=== PATIENT | female | born 1960 | race Caucasian/White ===

== ENCOUNTER 2017-05-30 10:57 | Inpatient (IN) ==
[2017-05-30] MEDS ORDERED: SODIUM CHLORIDE 0.9% 1,000 ML IV STA ×2 (11:11→12:16)
--- NOTE | 2017-05-30 11:20 | Emergency Department Note ---
Yoshi Ray Mantricia, am scribing for, and in the presence of, Parrish Boyle MD 11:16. Tamar Ray James D, MD, personally performed the services described in this documentation, ascribed by Dianna Belle in my presence, and it is both accurate and complete . Arrival - Arrival Chief Complaint: Nausea/Vomiting/Diarrhea Stated Complaint: diabetic-no insulin x2days ED Nursing Triage Note: C/o N/V and elevated glucose-onset this morning. Patient is type 1 diabetic and has been out of her insulin for 2 days. Accucheck >500mg/dl in triage. Mode of Arrival: Wheelchair Limitations: No Limitations Source: Patient Time Seen by Provider: 05/30/17 11:08 - History of Present Illness HPI Narrative: Pt is a 56 y/o white female arriving to ED via wheelchair with c/o N/V and elevated glucose that onset this morning. Pt reports that she is a type 1 IDDM and has been out of her insulin for 2 days. She also c/o frequent urination. She states that her glucose level was 490 mg/dl at 0500 this morning, 270 mg/dl 4 hours later,115 mg/dl [employer], and 500 mg/dl during triage. Pt has a PMHx of IDDM for 48 years now and has experienced DKA twice. No other complaints were reported to ED. Onset (ago): hour(s) Consistency: constant Severity: moderate Date of Last Menstrual Period: menopause Allergies/Adverse Reactions: Allergies Allergy/AdvReac Type Severity Reaction Status Date / Time acetaminophen [From Vicodin] Allergy Unknown/Unable Verified 05/30/17 11:06 to obtain codeine Allergy Unknown/Unable Verified 05/30/17 11:06 to obtain hydrocodone [From Vicodin] Allergy Unknown/Unable Verified 05/30/17 11:06 to obtain Home Medications: Home Medications Medication Instructions Recorded Confirmed Type Estradiol [Estradiol Tab] 0.5 mg PO QAM 05/30/17 05/30/17 History Insulin Aspart [NovoLOG] 3 unit SUBCUT TID W/MEALS 05/30/17 05/30/17 History Insulin Detemir [Levemir] 8 unit SUBCUT BEDTIME 05/30/17 05/30/17 History Lisinopril [Zestril] 2.5 mg PO QAM 05/30/17 05/30/17 History Review of System - Review of System 12 point system: reviewed and no additional remarkable complaints except as stated - Review of System Constitutional: Present: other (elevated glucose). Absent: chills, diaphoresis , fever Gastrointestinal: Present: nausea, vomiting. Absent: abdominal pain, diarrhea Genitourinary female: Present: frequency. Absent: dysuria, discharge Medical,Surgical,& Family Hx - Medical History Endocrine: History of: Diabetes Mellitus (IDDM) - Social History Smoking Status: Never smoker Frequency of Alcohol Use: None Type of Drug Use: None Exam Vital Signs: Vital Signs Temperature 97.0 F L 05/30/17 11:02 Pulse Rate 105 H 05/30/17 11:02 Respiratory Rate 18 05/30/17 11:02 Blood Pressure 93/67 05/30/17 11:02 O2 Sat by Pulse Oximetry 99 05/30/17 11:02 GENERAL: This is a thin chronically ill-appearing white female in no apparent distress. VITAL SIGNS: Reviewed HEENT: Head is atraumatic and normocephalic. Pupils are equal round react to light. Extraocular movements are intact. Oropharynx is benign with dry mucous membranes. Poor dentition NECK: Neck is soft and supple without tenderness. There are no masses. There is no lymphadenopathy. LUNGS: Lungs are clear to auscultation. Chest rises symmetrically. There is no chest wall tenderness. CV: Heart is regular rate and rhythm without murmurs rubs or gallops. ABDOMEN: Abdomen is soft, nontender to palpation. There are no abdominal abnormal masses palpated. There is no organomegaly. Bowel sounds are present and active. SKIN: Skin is warm and dry. No rash. EXTREMITIES: Patient has full range of motion without tenderness. There is no pedal edema. NEUROLOGIC: Awake alert and oriented 4. Cranial nerves II through XII are grossly intact. Motor is 5 over 5 in all extremities bilaterally. Deep tendon reflexes are 2+ and bilaterally equal. Course Course Narrative: Patient was given multiple fluid boluses along with 10 units of IV insulin and 1 amp of sodium bicarb. - Consultations Consultation #1: Discussed with hospitalist. Patient will be admitted to their service. Time: 12:47 Results - Labs CBC & BMP: 05/30/17 11:09 09/16/17 11:09 Lab Results: I have reviewed the patients labs Labs: Laboratory Tests 05/30/17 05/30/17 11:09 11:09 Plt Count 420 H Neut % (Auto) 79.4 H Lymph % (Auto) 13.5 L Baso % (Auto) 1.1 H Neut # (Auto) 9.2 H Sodium 129 L Potassium 5.2 H Chloride 93 L Carbon Dioxide 12 L Anion Gap 29.2 H BUN 40 H Creatinine 1.50 H BUN/Creatinine Ratio 26.00 H Glucose 666 H* Alkaline Phosphatase 239 H Lipase 466.0 H b-Hydroxybutyric mmol/L 5.5 H Laboratory Tests 05/30/17 05/30/17 11:58 12:15 ABG pH 7.077 L* ABG pCO2 18.7 L* ABG pO2 129.0 H ABG HCO3 8.0 L ABG Total CO2 5.2 L ABG O2 Saturation 97.3 ABG Base Excess -24.0 L Urine Opiates Screen Negative Ur Barbiturates Screen Negative Ur Phencyclidine Scrn Negative U Amphetamine/Methamph Negative U Benzodiazepines Scrn Negative U Cocaine Metab Screen Negative U Cannabinoids Screen Negative - Diagnostic Findings Procedure: Abdominal x-ray: image reviewed by me, report reviewed by me (Right nephrolithiasis cannot be excluded.), Chest x-ray: image reviewed by me, report reviewed by me (No abnormality is seen.) Critical Care Time Critical Care Time: Yes Total Critical Care Time: 60 Disposition Clinical Impression: Diabetes mellitus type 1, Dehydration, Diabetic ketoacidosis Case discussed with: patient, patient's family Disposition: Still a Patient Condition: Guarded
[2017-05-30 11:25] LABS: Basophils # 0.1 10*3/uL (0.0-0.2); Basophils % 1.1 % (0.0-0.8); Eosinophils % 0.3 % (0.00-10.9); Hematocrit 40.9 VOL% (35.7-47.0); Hemoglobin 13.7 GM/DL (12.0-16.0); Immature Granulocytes % 3.5 %; Immature Granulocytes Absolute 0.41 #; Lymphocytes # 1.6 10*3/uL (1.4-4.0); Lymphocytes % 13.5 % (21.3-54.2); Mean Corpuscular HGB Conc 33.5 GM/DL (32-36); Mean Corpuscular Hemoglobin 30 PG (27-34); Mean Corpuscular Volume 89.1 FL (87-102); Mean Platelet Volume 11.2 FL (9.6-12.0); Monocytes # 0.3 10*3/uL (0.11-0.8); Monocytes % 2.2 % (1.7-12.7); Neutrophils # 9.2 10*3/uL (1.4-7.4); Neutrophils % 79.4 % (38.7-73.9); Platelet Count 420 T/CUMM (130-400); Red Blood Count 4.59 MC/CUMM (3.8-5.5); Red Cell Distribution Width 12.1 % (9.3-17.3); White Blood Count 11.6 T/CUMM (4-12)
[2017-05-30 11:46] LABS: Albumin 4.4 G/DL (3.4-5.0); Bilirubin,Total 0.6 MG/DL (0.2-1.0); Calcium 9.9 MG/DL (8.5-10.1); Osmolality,Calculated 299.9 MOS/KG (273-304); Potassium 5.2 MMOL/L (3.5-5.1); Total Protein 7.6 G/DL (6.4-8.3)
--- NOTE | 2017-05-30 11:49 | XRay Report ---
Single view the chest. Indication: Nausea and vomiting. Diabetes mellitus. The heart and mediastinal contours are unremarkable. The pulmonary vasculature is normal. There is no consolidation, pneumothorax, or pleural effusion. The osseous structures are unremarkable. Impression: No abnormality is seen. PROCEDURE INTERPRETED AT [facility] DEPARTMENT OF RADIOLOGY Final Report Signed by: Dr. Enriqueta Fajardo
--- NOTE | 2017-05-30 11:50 | XRay Report ---
Abdomen ultrasound complete. Indication: Nausea and vomiting. The heart is normal in size. The lung bases are clear. There is no free air. Calcification projects over the midpole of the right kidney, measuring 1 x 2 mm. Calcifications in the pelvis are likely vascular. Bowel gas pattern is normal. No evidence of obstruction. Normal osseous structures. Impression: Right nephrolithiasis cannot be excluded. PROCEDURE INTERPRETED AT [facility] DEPARTMENT OF RADIOLOGY Final Report Signed by: Dr. Enriqueta Fajardo
[2017-05-30 12:06] LABS: ABG Oxygen Saturation 97.3 % (95-100); ABG TCO2 5.2 MMOL/L (23-27)
[2017-05-30 12:09] LABS: ABG PCO2 18.7 MM HG (35-48); ABG PH 7.077 (7.35-7.45)
[2017-05-30] MEDS ORDERED: SODIUM BICARBONATE 50 MEQ/50 ML VIAL IV STA (12:15)
[2017-05-30] MEDS ORDERED: INSULIN REGULAR 100 UNIT/ML IV STA (12:17)
[2017-05-30] MEDS ORDERED: SODIUM BICARBONATE 50 MEQ/50 ML SYRINGE IV ONE (12:21)
[2017-05-30 12:22] LABS: Apearance,Urine CLEAR (Clear); Bacteria,Urine Occasional /HPF (Few); Bilirubin,Urine Negative (Negative); Blood, Urine Negative (Negative); Glucose,Urine (UA) >=500 mg/dL (Negative); Ketones,Urine 80 mg/dL (Negative); Mucus,Urine Occasional /LPF (Occasional); Nitrite,Urine Negative (Negative); Protein,Urine Negative; Squamous Epithelial Cell,Urine Occasional /HPF (0-10); Urine Color Straw (Yellow); Urine Specific Gravity 1.017 (1.001-1.035); Urine Urobilinogen < 2.0 EU/DL (0.2-1.0); WBC,Urine <1 /HPF (0-6)
[2017-05-30] MEDS ORDERED: INSULIN REGULAR 100 UNIT/ML ONE (12:22)
[2017-05-30 12:30] LABS: Barbiturates Screen,Urine Negative (Negative); Benzodiazepines Screen,Urine Negative (Negative); Cannabinoid Screen,Urine Negative (Negative); Opiate Screen,Urine Negative (Negative); Phencyclidine Screen,Urine Negative (Negative)
--- NOTE | 2017-05-30 13:28 | Hospitalist History & Physical ---
Assessment and Plan (1) Diabetic ketoacidosis Status: Acute Assessment and plan: Normal saline bolus and insulin drip, acidosis on ABG. Current Visit: Yes (2) Hyponatremia Status: Acute Assessment and plan: Normal saline boluses Current Visit: Yes (3) Hypothyroidism Status: Acute Assessment and plan: Restart Synthroid. Check TSH Current Visit: Yes (4) Acute renal failure Status: Acute Assessment and plan: Rehydrate aggressively and recheck BMP in a.m. Current Visit: Yes (5) Pancreatitis Status: Acute Assessment and plan: Mildly elevated lipase which may have set off her DKA. Recheck lipase in a.m. clear liquids for now. Current Visit: Yes (6) Dehydration Status: Acute Assessment and plan: Normal saline boluses, dehydration due to hyperglycemia Current Visit: Yes History of Present Illness Chief complaint: nausea and vomiting History of present illness: Ms. Manuel is a 56 year old female who lives in [place] but came her for a visit and forgot to bring her insulin. She reports c/o N/V and her glucose is elevated at 666. She has been a type I diabetic since age of [age]. She was given one liter of NS in ER and 10 units of IV insulin and will be moved to CCU. Home Medications Medication Instructions Recorded Confirmed Type Estradiol [Estradiol Tab] 0.5 mg PO QAM 05/30/17 05/30/17 History Insulin Aspart [NovoLOG] 3 unit SUBCUT TID W/MEALS 05/30/17 05/30/17 History Insulin Detemir [Levemir] 8 unit SUBCUT BEDTIME 05/30/17 05/30/17 History Lisinopril [Zestril] 2.5 mg PO QAM 05/30/17 05/30/17 History Allergies Allergy/AdvReac Type Severity Reaction Status Date / Time acetaminophen [From Vicodin] Allergy Unknown/Unable Verified 05/30/17 11:06 to obtain codeine Allergy Unknown/Unable Verified 05/30/17 11:06 to obtain hydrocodone [From Vicodin] Allergy Unknown/Unable Verified 05/30/17 11:06 to obtain Medical,Surgical,& Family Hx - Medical History Cardio: No history of: Hypertension Endocrine: History of: Diabetes Mellitus (IDDM), Thyroid Disorder - Surgical History Reproductive Surgeries: Surgical HX of;: Section Additional Surgical History: Breast biopsy and eye surgery - Family History Family History: Reports;: Family Cancer, Family Diabetes Denies;: Family Heart Disease, Family Stroke - Social History Smoking Status: Never smoker (But was exposed to secondhand smoke) Frequency of Alcohol Use: None Type of Drug Use: None Marital Status: Lives With:: Spouse Functional capacity: independent ambulation - Constitutional Constitutional: Present: fatigue. Absent: fever(s), headache(s) - EENT Eyes: Present: blurry vision. Absent: diplopia Ears: Absent: decreased hearing, ear discharge Nose, mouth and throat: Absent: headache(s), sore throat - Cardiovascular Cardiovascular: Absent: chest pain at rest, chest pain with activity, dyspnea, dyspnea on exertion - Respiratory Respiratory: Absent: cough, dyspnea, dyspnea on exertion, change in phlegm color - Gastrointestinal Gastrointestinal: Present: nausea, vomiting. Absent: constipation, diarrhea - Genitourinary Genitourinary: Absent: difficulty urinating, dysuria - Neurological Neurological: Absent: headache(s), syncope - Psychiatric Psychiatric: Absent: anxiety, depression - Endocrine Endocrine: Present: cold intolerance, fatigue. Absent: heat intolerance - Hematologic/Lymphatic Hematologic/Lymphatic: Absent: easy bleeding, easy bruising Exam - Constitutional Vitals: Period Temp Pulse Resp BP Sys/Ferrer Pulse Ox Last 24 Hr 97.0 F-97.0 F 105-105 18-18 93-93/67-67 99 General appearance: no acute distress, under weight - Head Head exam: Present: normal inspection, normocephalic - Eye Eye exam: Present: EOMI, conjunctival injection Pupils: Present: JENNA, normal accommodation - ENT ENT exam: Present: normal exam, normal external ear exam - Neck Neck exam: Absent: lymphadenopathy, thyromegaly - Respiratory Respiratory exam: Present: clear to auscultation bilaterally. Absent: rhonchi, wheezes - Cardiovascular Cardiovascular exam: Present: tachycardia. Absent: systolic murmur - GI/Abdominal GI/Abdominal exam: Present: normal bowel sounds, soft. Absent: tenderness - Extremities Exam Extremities exam: Present: normal inspection, normal capillary refill - Neurological Exam Neurological exam: Present: alert, oriented X3, CN II-XII intact, reflexes normal. Absent: motor sensory deficit - Psychiatric Psychiatric exam: Present: normal affect, normal mood Results - Labs CBC & BMP: 05/30/17 11:09 05/30/17 11:09 Lab Results: I have reviewed the past 24 hour labs - Diagnostic Findings Procedure: Abdominal x-ray: report reviewed by me (Right nephrolithiasis), Chest x-ray: report reviewed by me (Nothing acute)
[2017-05-30] MEDS ORDERED: ONDANSETRON 4 MG/2 ML VIAL IV PRN (13:59)
[2017-05-30] MEDS ORDERED: SODIUM CHLORIDE 0.9% IV PRN (13:59)
[2017-05-30] MEDS ORDERED: SODIUM PHOSPHATE IV PRN (13:59)
[2017-05-30] MEDS ORDERED: ALBUTEROL 2.5 MG/3 ML NEB RESP TX PRN (13:59)
[2017-05-30] MEDS ORDERED: MAGNESIUM SULF RIDER 2 GM in PREMIX 1 EACH IV PRN (13:59)
[2017-05-30] MEDS ORDERED: INSULIN REGULAR 100 UNIT/ML IV ONE (13:59)
[2017-05-30] MEDS ORDERED: INSULIN REGULAR DRIP 100 ML IV SCH (13:59)
[2017-05-30] MEDS ORDERED: DEXTROSE 50% 25 GM/50 ML SYRINGE IV PRN ×2 (13:59)
[2017-05-30] MEDS ORDERED: SODIUM CHLORIDE 0.9% 1,000 ML IV ONE (13:59)
[2017-05-30] MEDS ORDERED: MAGNESIUM SULF RIDER 4 GM in PREMIX 1 EACH IV PRN (13:59)
[2017-05-30] MEDS ORDERED: POTASSIUM CHLORIDE RIDER 10 MEQ in PREMIX 1 EACH IV PRN (13:59)
[2017-05-30] MEDS ORDERED: SODIUM BICARB INJ 100 MEQ in STERILE WATER INJ 400 ML IV PRN (13:59)
[2017-05-30] MEDS: SODIUM CHLORIDE 0.9% 1,000 ML IV SCH ×4 (14:24→20:57)
[2017-05-30 14:50] LABS: ABG Base Excess -17.2 MMOL/L (-2.5-2.5); ABG HCO3 11.7 MMOL/L (20-26); ABG Oxygen Saturation 98.5 % (95-100); ABG PCO2 22.6 MM HG (35-48); ABG PH 7.223 (7.35-7.45); ABG TCO2 8.6 MMOL/L (23-27); Allen Test Positive; Pt O2 Delivery Device Room Air
[2017-05-30 14:53] LABS: Osmolality,Calculated 298.7 MOS/KG (273-304); Potassium 4.2 MMOL/L (3.5-5.1)
[2017-05-30 15:05] LABS: Free T4 (Free Thyroxine) 0.73 NG/DL (0.76-1.46); Thyroid Stimulating Hormone 1.27 uIU/ml (0.358-3.74)
[2017-05-30] MEDS: PANTOPRAZOLE 40 MG VIAL IV SCH (15:06)
[2017-05-30 15:10] LABS: Lactic Acid 2.6 MMOL/L (0.4-2.0)
[2017-05-30 16:18] LABS: ABG Base Excess -14.2 MMOL/L (-2.5-2.5); ABG HCO3 13.5 MMOL/L (20-26); ABG PCO2 27.9 MM HG (35-48); ABG PH 7.244 (7.35-7.45); ABG TCO2 11.2 MMOL/L (23-27); Allen Test Positive; Pt O2 Delivery Device Room Air
[2017-05-30 17:40] LABS: ABG Base Excess -11.7 MMOL/L (-2.5-2.5); ABG HCO3 13.2 MMOL/L (20-26); ABG Oxygen Saturation 97.3 % (95-100); ABG PCO2 27.3 MM HG (35-48); ABG PH 7.303 (7.35-7.45); ABG PO2 101.8 MM HG (80-95); ABG TCO2 14.1 MMOL/L (23-27); Allen Test Positive; Pt O2 Delivery Device Room Air
[2017-05-30 18:44] LABS: Phosphorous 1.9 MG/DL (2.5-4.9)
[2017-05-30 18:45] LABS: Calcium 7.2 MG/DL (8.5-10.1); Osmolality,Calculated 298.5 MOS/KG (273-304); Potassium 3.8 MMOL/L (3.5-5.1)
[2017-05-30] MEDS: SODIUM CHLOR 0.45% KCL 20 MEQ 20 MEQ/1,000 ML BAG IV SCH (20:50)
[2017-05-30] MEDS: DEXT 5% NACL 0.45% KCL 20 MEQ 20 MEQ/1,000 ML BAG IV SCH (22:25)
[2017-05-30 23:10] LABS: Calcium 7.5 MG/DL (8.5-10.1); Osmolality,Calculated 286.3 MOS/KG (273-304); Potassium 3.5 MMOL/L (3.5-5.1)
[2017-05-31] MEDS: DEXT 5% NACL 0.45% KCL 20 MEQ 20 MEQ/1,000 ML BAG IV SCH ×2 (02:15→06:27)
[2017-05-31] MEDS: SODIUM CHLOR 0.45% KCL 20 MEQ 20 MEQ/1,000 ML BAG IV SCH (02:16)
[2017-05-31 02:45] LABS: Basophils % 0.3 % (0.0-0.8); Eosinophils # 0.1 10*3/uL (0.0-0.87); Eosinophils % 0.6 % (0.00-10.9); Hematocrit 28.4 VOL% (35.7-47.0); Immature Granulocytes % 0.9 %; Immature Granulocytes Absolute 0.09 #; Lymphocytes # 2.1 10*3/uL (1.4-4.0); Lymphocytes % 22.1 % (21.3-54.2); Mean Corpuscular HGB Conc 35.2 GM/DL (32-36); Mean Corpuscular Hemoglobin 30 PG (27-34); Mean Corpuscular Volume 83.8 FL (87-102); Mean Platelet Volume 10.5 FL (9.6-12.0); Monocytes # 0.5 10*3/uL (0.11-0.8); Monocytes % 5.2 % (1.7-12.7); Neutrophils # 6.7 10*3/uL (1.4-7.4); Neutrophils % 70.9 % (38.7-73.9); Platelet Count 279 T/CUMM (130-400); Red Blood Count 3.39 MC/CUMM (3.8-5.5); Red Cell Distribution Width 12.2 % (9.3-17.3); White Blood Count 9.5 T/CUMM (4-12)
[2017-05-31 02:49] LABS: Calcium 7.5 MG/DL (8.5-10.1); Calcium 7.6 MG/DL (8.5-10.1); Magnesium 1.9 MG/DL (1.8-2.4); Osmolality,Calculated 287.4 MOS/KG (273-304); Osmolality,Calculated 288.4 MOS/KG (273-304); Phosphorous 1.4 MG/DL (2.5-4.9); Potassium 3.6 MMOL/L (3.5-5.1)
[2017-05-31] MEDS ORDERED: SODIUM CHLOR 0.45% KCL 20 MEQ 20 MEQ/1,000 ML BAG IV SCH (04:30)
[2017-05-31] MEDS: SODIUM CHLORIDE 0.45% 1,000 ML IV SCH ×3 (06:27→15:22)
[2017-05-31 07:34] LABS: Calcium 7.7 MG/DL (8.5-10.1); Magnesium 1.9 MG/DL (1.8-2.4); Osmolality,Calculated 283.3 MOS/KG (273-304); Potassium 3.7 MMOL/L (3.5-5.1)
[2017-05-31] MEDS ORDERED: ESTRADIOL 1 MG TABLET PO SCH (09:00)
[2017-05-31] MEDS ORDERED: INSULIN GLARGINE 100 UNIT/ML SUBCUT SCH (09:00)
[2017-05-31] MEDS ORDERED: GLUCAGON 1 MG VIAL IM PRN (10:42)
[2017-05-31] MEDS: INSULIN LISPRO 100 UNIT/ML SUBCUT SCH ×2 (11:40→16:13)
--- NOTE | 2017-05-31 11:48 | Discharge Summary ---
Hospital Course - Hospital Course Hospital Course: This is a pleasant 56-year-old female who is down visiting from [place] and forgot to bring her insulin. She started having problems with nausea and vomiting and her blood sugar on admission was 666. She was in DKA she was given aggressive IV IV insulin and normal saline. Her DKA has resolved. We gave her 50 units of subcu Lantus and her blood sugars are still running high. Her has come today and insist on her going home today as he has no way to come back and pick her up if she does leave tomorrow. Patient does have a regular physician that follows her closely for her diabetes. Patient also says that she takes thyroid medicine and her thyroid level is abnormal but she does not remember the dose of her Synthroid. She did not bring her Synthroid with her. I encouraged her to take these medications when they return home. Her blood pressure was low on admission mainly due to dehydration. She is on lisinopril just to protect her kidneys from the diabetes. Patient had some mild pancreatitis which was probably set off by the DKA. Her lipase is very elevated today at 3196 but she insists on going home and reports no pain. Patient's magnesium was also low but has been replaced per protocol. Her phosphorus is also low also been replaced per protocol. Patient does not complain of pain or discomfort in her abdomen with eating. I recommend that she continue to eat soft foods but she will need to re-presented to the emergency room if she starts having nausea and vomiting again. I am concerned about her leaving so early that they have assured me she will follow closely with her primary care physician. - Time spent with patient Time with patient DS: Greater than 30 minutes (35 min) Diagnosis - Discharge Diagnosis (1) Diabetic ketoacidosis Status: Acute (2) Hyponatremia Status: Acute (3) Hypothyroidism Status: Acute (4) Acute renal failure Status: Acute (5) Pancreatitis Status: Acute (6) Dehydration Status: Acute Discharge Plan - Discharge Data Disposition: Disch To Home/Self Care Condition at Discharge: Stable Discharge Diet: diabetic diet Activity: resume usual activities as tolerated Hygiene: no restrictions Weight Bearing at Discharge: full weight bearing Driving: not until seen by doctor - Discharge Medications Continue Lisinopril [Zestril] 2.5 mg PO QAM Insulin Aspart [NovoLOG] 3 unit SUBCUT TID W/MEALS Estradiol [Estradiol Tab] 0.5 mg PO QAM Changed Insulin Detemir [Levemir] 50 unit SUBCUT DAILY #1 ml - Follow Up or Referral Follow Up: dr annie [Other] (tomorrow ) - Forms/Instructions Additional Discharge Instructions: restart thyroid meds when she returns home. soft food only no meat or salads Exam - Constitutional Vitals: Period Temp Pulse Resp BP Sys/Ferrer Pulse Ox Last 24 Hr 97 F-97.5 F 71-104 10-22 85-125/43-83 95-100 General appearance: no acute distress, under weight - Respiratory Respiratory exam: Present: clear to auscultation bilaterally - Cardiovascular Cardiovascular exam: Present: regular rate and rhythm - GI/Abdominal GI/Abdominal exam: Present: normal bowel sounds, soft. Absent: tenderness - Neurological Exam Neurological exam: Present: alert, oriented X3 - Psychiatric Psychiatric exam: Present: normal affect, normal mood Discharge Results Procedures and tests throughout hospitalization: Pending Orders 05/30/17 14:22 Blood Culture Stat 05/30/17 17:18 MRSA Surveillence, Inf Control Routine 06/01/17 04:00 Basic Metabolic Panel IN AM Comp Blood Count Auto Diff IN AM Labs on day of discharge: Labs from last 24 hours 05/31/17 05/31/17 05/31/17 11:32 08:07 07:04 WBC RBC Hgb Hct MCV MCH MCHC RDW Plt Count MPV Neut % (Auto) Lymph % (Auto) [place] % (Auto) Eos % (Auto) Baso % (Auto) Neut # (Auto) Lymph # (Auto) [place] # (Auto) Eos # (Auto) Baso # (Auto) Immature Gran % Nucleated RBC % Immature Gran # Nucleated RBCs # Immature Plt Fraction ABG pH ABG pCO2 ABG pO2 ABG HCO3 ABG Total CO2 ABG O2 Saturation ABG Base Excess FiO2 Sodium Potassium Chloride Carbon Dioxide Anion Gap BUN Creatinine GFR Calculation BUN/Creatinine Ratio Glucose POC Glucose 310 H 106 142 H Hemoglobin A1c Calculated Osmolality Lactic Acid Calcium Phosphorus Magnesium Total Bilirubin AST ALT Alkaline Phosphatase Total Protein Albumin Globulin Albumin/Globulin Ratio Lipase b-Hydroxybutyric mmol/L Free T4 TSH 3rd Generation Urine Color Urine Appearance Urine pH Ur Specific [place] Urine Protein Urine Glucose (UA) Urine Ketones Urine Blood Urine Nitrate Urine Bilirubin Urine Urobilinogen Urine Leukocytes Urine WBC Ur Squamous Epith Cells Urine Bacteria Urine Mucus Ur Culture Indicated? Urine Opiates Screen Ur Barbiturates Screen Ur Phencyclidine Scrn U Amphetamine/Methamph U Benzodiazepines Scrn U Cocaine Metab Screen U Cannabinoids Screen 05/31/17 05/31/17 05/31/17 06:59 06:13 05:26 WBC RBC Hgb Hct MCV MCH MCHC RDW Plt Count MPV Neut % (Auto) Lymph % (Auto) [place] % (Auto) Eos % (Auto) Baso % (Auto) Neut # (Auto) Lymph # (Auto) [place] # (Auto) Eos # (Auto) Baso # (Auto) Immature Gran % Nucleated RBC % Immature Gran # Nucleated RBCs # Immature Plt Fraction ABG pH ABG pCO2 ABG pO2 ABG HCO3 ABG Total CO2 ABG O2 Saturation ABG Base Excess FiO2 Sodium 141 Potassium 3.7 Chloride 112 H Carbon Dioxide 18 L Anion Gap 14.7 BUN 16 Creatinine 0.60 GFR Calculation 80 BUN/Creatinine Ratio 26.00 H Glucose 132 H POC Glucose 170 H 170 H Hemoglobin A1c Calculated Osmolality 283.3 Lactic Acid Calcium 7.7 L Phosphorus Magnesium 1.9 Total Bilirubin AST ALT Alkaline Phosphatase Total Protein Albumin Globulin Albumin/Globulin Ratio Lipase b-Hydroxybutyric mmol/L Free T4 TSH 3rd Generation Urine Color Urine Appearance Urine pH Ur Specific [place] Urine Protein Urine Glucose (UA) Urine Ketones Urine Blood Urine Nitrate Urine Bilirubin Urine Urobilinogen Urine Leukocytes Urine WBC Ur Squamous Epith Cells Urine Bacteria Urine Mucus Ur Culture Indicated? Urine Opiates Screen Ur Barbiturates Screen Ur Phencyclidine Scrn U Amphetamine/Methamph U Benzodiazepines Scrn U Cocaine Metab Screen U Cannabinoids Screen 05/31/17 05/31/17 05/31/17 04:37 04:13 03:30 WBC RBC Hgb Hct MCV MCH MCHC RDW Plt Count MPV Neut % (Auto) Lymph % (Auto) [place] % (Auto) Eos % (Auto) Baso % (Auto) Neut # (Auto) Lymph # (Auto) [place] # (Auto) Eos # (Auto) Baso # (Auto) Immature Gran % Nucleated RBC % Immature Gran # Nucleated RBCs # Immature Plt Fraction ABG pH ABG pCO2 ABG pO2 ABG HCO3 ABG Total CO2 ABG O2 Saturation ABG Base Excess FiO2 Sodium Potassium Chloride Carbon Dioxide Anion Gap BUN Creatinine GFR Calculation BUN/Creatinine Ratio Glucose POC Glucose 141 H 70 L 106 Hemoglobin A1c Calculated Osmolality Lactic Acid Calcium Phosphorus Magnesium Total Bilirubin AST ALT Alkaline Phosphatase Total Protein Albumin Globulin Albumin/Globulin Ratio Lipase b-Hydroxybutyric mmol/L Free T4 TSH 3rd Generation Urine Color Urine Appearance Urine pH Ur Specific [place] Urine Protein Urine Glucose (UA) Urine Ketones Urine Blood Urine Nitrate Urine Bilirubin Urine Urobilinogen Urine Leukocytes Urine WBC Ur Squamous Epith Cells Urine Bacteria Urine Mucus Ur Culture Indicated? Urine Opiates Screen Ur Barbiturates Screen Ur Phencyclidine Scrn U Amphetamine/Methamph U Benzodiazepines Scrn U Cocaine Metab Screen U Cannabinoids Screen 05/31/17 05/31/17 05/31/17 02:07 01:57 01:57 WBC RBC Hgb Hct MCV MCH MCHC RDW Plt Count MPV Neut % (Auto) Lymph % (Auto) [place] % (Auto) Eos % (Auto) Baso % (Auto) Neut # (Auto) Lymph # (Auto) [place] # (Auto) Eos # (Auto) Baso # (Auto) Immature Gran % Nucleated RBC % Immature Gran # Nucleated RBCs # Immature Plt Fraction ABG pH ABG pCO2 ABG pO2 ABG HCO3 ABG Total CO2 ABG O2 Saturation ABG Base Excess FiO2 Sodium Potassium Chloride Carbon Dioxide Anion Gap BUN Creatinine GFR Calculation BUN/Creatinine Ratio Glucose POC Glucose 231 H Hemoglobin A1c Calculated Osmolality Lactic Acid Calcium Phosphorus Magnesium Total Bilirubin AST ALT Alkaline Phosphatase Total Protein Albumin Globulin Albumin/Globulin Ratio Lipase 3196.0 H D b-Hydroxybutyric mmol/L 0.1 Free T4 TSH 3rd Generation Urine Color Urine Appearance Urine pH Ur Specific [place] Urine Protein Urine Glucose (UA) Urine Ketones Urine Blood Urine Nitrate Urine Bilirubin Urine Urobilinogen Urine Leukocytes Urine WBC Ur Squamous Epith Cells Urine Bacteria Urine Mucus Ur Culture Indicated? Urine Opiates Screen Ur Barbiturates Screen Ur Phencyclidine Scrn U Amphetamine/Methamph U Benzodiazepines Scrn U Cocaine Metab Screen U Cannabinoids Screen 05/31/17 05/31/17 05/31/17 01:57 01:57 01:57 WBC 9.5 RBC 3.39 L D Hgb 10.0 L D Hct 28.4 L MCV 83.8 L MCH 30 MCHC 35.2 RDW 12.2 Plt Count 279 D MPV 10.5 Neut % (Auto) 70.9 Lymph % (Auto) 22.1 [place] % (Auto) 5.2 Eos % (Auto) 0.6 Baso % (Auto) 0.3 Neut # (Auto) 6.7 Lymph # (Auto) 2.1 [place] # (Auto) 0.5 Eos # (Auto) 0.1 Baso # (Auto) 0.0 Immature Gran % 0.9 Nucleated RBC % 0.0 Immature Gran # 0.09 Nucleated RBCs # 0.00 Immature Plt Fraction 0.0 ABG pH ABG pCO2 ABG pO2 ABG HCO3 ABG Total CO2 ABG O2 Saturation ABG Base Excess FiO2 Sodium 140 Potassium 3.6 Chloride 111 H Carbon Dioxide 21 Anion Gap 11.6 BUN 22 H Creatinine 0.80 GFR Calculation 63 BUN/Creatinine Ratio 27.00 H Glucose 206 H POC Glucose Hemoglobin A1c 11.8 H Calculated Osmolality 287.4 Lactic Acid Calcium 7.6 L Phosphorus 1.4 L Magnesium 1.9 Total Bilirubin AST ALT Alkaline Phosphatase Total Protein Albumin Globulin Albumin/Globulin Ratio Lipase b-Hydroxybutyric mmol/L Free T4 TSH 3rd Generation Urine Color Urine Appearance Urine pH Ur Specific [place] Urine Protein Urine Glucose (UA) Urine Ketones Urine Blood Urine Nitrate Urine Bilirubin Urine Urobilinogen Urine Leukocytes Urine WBC Ur Squamous Epith Cells Urine Bacteria Urine Mucus Ur Culture Indicated? Urine Opiates Screen Ur Barbiturates Screen Ur Phencyclidine Scrn U Amphetamine/Methamph U Benzodiazepines Scrn U Cocaine Metab Screen U Cannabinoids Screen 05/31/17 05/31/17 05/31/17 01:57 01:05 00:10 WBC RBC Hgb Hct MCV MCH MCHC RDW Plt Count MPV Neut % (Auto) Lymph % (Auto) [place] % (Auto) Eos % (Auto) Baso % (Auto) Neut # (Auto) Lymph # (Auto) [place] # (Auto) Eos # (Auto) Baso # (Auto) Immature Gran % Nucleated RBC % Immature Gran # Nucleated RBCs # Immature Plt Fraction ABG pH ABG pCO2 ABG pO2 ABG HCO3 ABG Total CO2 ABG O2 Saturation ABG Base Excess FiO2 Sodium 140 Potassium 3.6 Chloride 112 H Carbon Dioxide 22 Anion Gap 9.6 BUN 23 H Creatinine 0.90 GFR Calculation 55 BUN/Creatinine Ratio 25.00 H Glucose 198 H POC Glucose 243 H 220 H Hemoglobin A1c Calculated Osmolality 288.4 Lactic Acid Calcium 7.5 L Phosphorus Magnesium Total Bilirubin AST ALT Alkaline Phosphatase Total Protein Albumin Globulin Albumin/Globulin Ratio Lipase b-Hydroxybutyric mmol/L Free T4 TSH 3rd Generation Urine Color Urine Appearance Urine pH Ur Specific [place] Urine Protein Urine Glucose (UA) Urine Ketones Urine Blood Urine Nitrate Urine Bilirubin Urine Urobilinogen Urine Leukocytes Urine WBC Ur Squamous Epith Cells Urine Bacteria Urine Mucus Ur Culture Indicated? Urine Opiates Screen Ur Barbiturates Screen Ur Phencyclidine Scrn U Amphetamine/Methamph U Benzodiazepines Scrn U Cocaine Metab Screen U Cannabinoids Screen 05/30/17 05/30/17 05/30/17 23:15 22:27 22:12 WBC RBC Hgb Hct MCV MCH MCHC RDW Plt Count MPV Neut % (Auto) Lymph % (Auto) [place] % (Auto) Eos % (Auto) Baso % (Auto) Neut # (Auto) Lymph # (Auto) [place] # (Auto) Eos # (Auto) Baso # (Auto) Immature Gran % Nucleated RBC % Immature Gran # Nucleated RBCs # Immature Plt Fraction ABG pH ABG pCO2 ABG pO2 ABG HCO3 ABG Total CO2 ABG O2 Saturation ABG Base Excess FiO2 Sodium 141 Potassium 3.5 Chloride 112 H Carbon Dioxide 21 Anion Gap 11.5 BUN 25 H Creatinine 0.90 GFR Calculation 55 BUN/Creatinine Ratio 27.00 H Glucose 139 H POC Glucose 226 H 157 H Hemoglobin A1c Calculated Osmolality 286.3 Lactic Acid Calcium 7.5 L Phosphorus Magnesium Total Bilirubin AST ALT Alkaline Phosphatase Total Protein Albumin Globulin Albumin/Globulin Ratio Lipase b-Hydroxybutyric mmol/L Free T4 TSH 3rd Generation Urine Color Urine Appearance Urine pH Ur Specific [place] Urine Protein Urine Glucose (UA) Urine Ketones Urine Blood Urine Nitrate Urine Bilirubin Urine Urobilinogen Urine Leukocytes Urine WBC Ur Squamous Epith Cells Urine Bacteria Urine Mucus Ur Culture Indicated? Urine Opiates Screen Ur Barbiturates Screen Ur Phencyclidine Scrn U Amphetamine/Methamph U Benzodiazepines Scrn U Cocaine Metab Screen U Cannabinoids Screen 05/30/17 05/30/17 05/30/17 21:09 20:05 19:04 WBC RBC Hgb Hct MCV MCH MCHC RDW Plt Count MPV Neut % (Auto) Lymph % (Auto) [place] % (Auto) Eos % (Auto) Baso % (Auto) Neut # (Auto) Lymph # (Auto) [place] # (Auto) Eos # (Auto) Baso # (Auto) Immature Gran % Nucleated RBC % Immature Gran # Nucleated RBCs # Immature Plt Fraction ABG pH ABG pCO2 ABG pO2 ABG HCO3 ABG Total CO2 ABG O2 Saturation ABG Base Excess FiO2 Sodium Potassium Chloride Carbon Dioxide Anion Gap BUN Creatinine GFR Calculation BUN/Creatinine Ratio Glucose POC Glucose 215 H 243 H 323 H Hemoglobin A1c Calculated Osmolality Lactic Acid Calcium Phosphorus Magnesium Total Bilirubin AST ALT Alkaline Phosphatase Total Protein Albumin Globulin Albumin/Globulin Ratio Lipase b-Hydroxybutyric mmol/L Free T4 TSH 3rd Generation Urine Color Urine Appearance Urine pH Ur Specific [place] Urine Protein Urine Glucose (UA) Urine Ketones Urine Blood Urine Nitrate Urine Bilirubin Urine Urobilinogen Urine Leukocytes Urine WBC Ur Squamous Epith Cells Urine Bacteria Urine Mucus Ur Culture Indicated? Urine Opiates Screen Ur Barbiturates Screen Ur Phencyclidine Scrn U Amphetamine/Methamph U Benzodiazepines Scrn U Cocaine Metab Screen U Cannabinoids Screen 05/30/17 05/30/17 05/30/17 18:10 18:10 18:08 WBC RBC Hgb Hct MCV MCH MCHC RDW Plt Count MPV Neut % (Auto) Lymph % (Auto) [place] % (Auto) Eos % (Auto) Baso % (Auto) Neut # (Auto) Lymph # (Auto) [place] # (Auto) Eos # (Auto) Baso # (Auto) Immature Gran % Nucleated RBC % Immature Gran # Nucleated RBCs # Immature Plt Fraction ABG pH ABG pCO2 ABG pO2 ABG HCO3 ABG Total CO2 ABG O2 Saturation ABG Base Excess FiO2 Sodium 139 Potassium 3.8 Chloride 109 H Carbon Dioxide 18 L Anion Gap 15.8 H BUN 29 H Creatinine 1.10 H GFR Calculation 43 BUN/Creatinine Ratio 26.00 H Glucose 379 H POC Glucose 368 H Hemoglobin A1c Calculated Osmolality 298.5 Lactic Acid Calcium 7.2 L Phosphorus 1.9 L Magnesium 2.0 Total Bilirubin AST ALT Alkaline Phosphatase Total Protein Albumin Globulin Albumin/Globulin Ratio Lipase b-Hydroxybutyric mmol/L Free T4 TSH 3rd Generation Urine Color Urine Appearance Urine pH Ur Specific [place] Urine Protein Urine Glucose (UA) Urine Ketones Urine Blood Urine Nitrate Urine Bilirubin Urine Urobilinogen Urine Leukocytes Urine WBC Ur Squamous Epith Cells Urine Bacteria Urine Mucus Ur Culture Indicated? Urine Opiates Screen Ur Barbiturates Screen Ur Phencyclidine Scrn U Amphetamine/Methamph U Benzodiazepines Scrn U Cocaine Metab Screen U Cannabinoids Screen 05/30/17 05/30/17 05/30/17 17:30 17:03 16:10 WBC RBC Hgb Hct MCV MCH MCHC RDW Plt Count MPV Neut % (Auto) Lymph % (Auto) [place] % (Auto) Eos % (Auto) Baso % (Auto) Neut # (Auto) Lymph # (Auto) [place] # (Auto) Eos # (Auto) Baso # (Auto) Immature Gran % Nucleated RBC % Immature Gran # Nucleated RBCs # Immature Plt Fraction ABG pH 7.303 L 7.244 L ABG pCO2 27.3 L 27.9 L ABG pO2 101.8 H 114.0 H ABG HCO3 13.2 L 13.5 L ABG Total CO2 14.1 L 11.2 L ABG O2 Saturation 97.3 98.0 ABG Base Excess -11.7 L -14.2 L FiO2 21.00 21.00 Sodium Potassium Chloride Carbon Dioxide Anion Gap BUN Creatinine GFR Calculation BUN/Creatinine Ratio Glucose POC Glucose 390 H Hemoglobin A1c Calculated Osmolality Lactic Acid Calcium Phosphorus Magnesium Total Bilirubin AST ALT Alkaline Phosphatase Total Protein Albumin Globulin Albumin/Globulin Ratio Lipase b-Hydroxybutyric mmol/L Free T4 TSH 3rd Generation Urine Color Urine Appearance Urine pH Ur Specific [place] Urine Protein Urine Glucose (UA) Urine Ketones Urine Blood Urine Nitrate Urine Bilirubin Urine Urobilinogen Urine Leukocytes Urine WBC Ur Squamous Epith Cells Urine Bacteria Urine Mucus Ur Culture Indicated? Urine Opiates Screen Ur Barbiturates Screen Ur Phencyclidine Scrn U Amphetamine/Methamph U Benzodiazepines Scrn U Cocaine Metab Screen U Cannabinoids Screen 05/30/17 05/30/17 05/30/17 16:01 14:56 14:36 WBC RBC Hgb Hct MCV MCH MCHC RDW Plt Count MPV Neut % (Auto) Lymph % (Auto) [place] % (Auto) Eos % (Auto) Baso % (Auto) Neut # (Auto) Lymph # (Auto) [place] # (Auto) Eos # (Auto) Baso # (Auto) Immature Gran % Nucleated RBC % Immature Gran # Nucleated RBCs # Immature Plt Fraction ABG pH 7.223 L ABG pCO2 22.6 L ABG pO2 131.0 H ABG HCO3 11.7 L ABG Total CO2 8.6 L ABG O2 Saturation 98.5 ABG Base Excess -17.2 L FiO2 21.00 Sodium Potassium Chloride Carbon Dioxide Anion Gap BUN Creatinine GFR Calculation BUN/Creatinine Ratio Glucose POC Glucose 417 H 392 H Hemoglobin A1c Calculated Osmolality Lactic Acid Calcium Phosphorus Magnesium Total Bilirubin AST ALT Alkaline Phosphatase Total Protein Albumin Globulin Albumin/Globulin Ratio Lipase b-Hydroxybutyric mmol/L Free T4 TSH 3rd Generation Urine Color Urine Appearance Urine pH Ur Specific [place] Urine Protein Urine Glucose (UA) Urine Ketones Urine Blood Urine Nitrate Urine Bilirubin Urine Urobilinogen Urine Leukocytes Urine WBC Ur Squamous Epith Cells Urine Bacteria Urine Mucus Ur Culture Indicated? Urine Opiates Screen Ur Barbiturates Screen Ur Phencyclidine Scrn U Amphetamine/Methamph U Benzodiazepines Scrn U Cocaine Metab Screen U Cannabinoids Screen 05/30/17 05/30/17 05/30/17 14:22 14:22 13:59 WBC RBC Hgb Hct MCV MCH MCHC RDW Plt Count MPV Neut % (Auto) Lymph % (Auto) [place] % (Auto) Eos % (Auto) Baso % (Auto) Neut # (Auto) Lymph # (Auto) [place] # (Auto) Eos # (Auto) Baso # (Auto) Immature Gran % Nucleated RBC % Immature Gran # Nucleated RBCs # Immature Plt Fraction ABG pH ABG pCO2 ABG pO2 ABG HCO3 ABG Total CO2 ABG O2 Saturation ABG Base Excess FiO2 Sodium 138 Potassium 4.2 Chloride 105 Carbon Dioxide 13 L Anion Gap 24.2 H BUN 38 H Creatinine 1.20 H GFR Calculation 39 BUN/Creatinine Ratio 31.00 H Glucose 360 H POC Glucose 399 H Hemoglobin A1c Calculated Osmolality 298.7 Lactic Acid 2.6 H Calcium 8.0 L Phosphorus Magnesium Total Bilirubin AST ALT Alkaline Phosphatase Total Protein Albumin Globulin Albumin/Globulin Ratio Lipase b-Hydroxybutyric mmol/L Free T4 0.73 L TSH 3rd Generation 1.270 Urine Color Urine Appearance Urine pH Ur Specific [place] Urine Protein Urine Glucose (UA) Urine Ketones Urine Blood Urine Nitrate Urine Bilirubin Urine Urobilinogen Urine Leukocytes Urine WBC Ur Squamous Epith Cells Urine Bacteria Urine Mucus Ur Culture Indicated? Urine Opiates Screen Ur Barbiturates Screen Ur Phencyclidine Scrn U Amphetamine/Methamph U Benzodiazepines Scrn U Cocaine Metab Screen U Cannabinoids Screen 05/30/17 05/30/17 05/30/17 13:49 12:15 12:15 WBC RBC Hgb Hct MCV MCH MCHC RDW Plt Count MPV Neut % (Auto) Lymph % (Auto) [place] % (Auto) Eos % (Auto) Baso % (Auto) Neut # (Auto) Lymph # (Auto) [place] # (Auto) Eos # (Auto) Baso # (Auto) Immature Gran % Nucleated RBC % Immature Gran # Nucleated RBCs # Immature Plt Fraction ABG pH ABG pCO2 ABG pO2 ABG HCO3 ABG Total CO2 ABG O2 Saturation ABG Base Excess FiO2 Sodium Potassium Chloride Carbon Dioxide Anion Gap BUN Creatinine GFR Calculation BUN/Creatinine Ratio Glucose POC Glucose 428 H Hemoglobin A1c Calculated Osmolality Lactic Acid Calcium Phosphorus Magnesium Total Bilirubin AST ALT Alkaline Phosphatase Total Protein Albumin Globulin Albumin/Globulin Ratio Lipase b-Hydroxybutyric mmol/L Free T4 TSH 3rd Generation Urine Color Straw Urine Appearance Clear Urine pH 5.0 Ur Specific [place] 1.017 Urine Protein Negative Urine Glucose (UA) >=500 Urine Ketones 80 Urine Blood Negative Urine Nitrate Negative Urine Bilirubin Negative Urine Urobilinogen < 2.0 H Urine Leukocytes Negative Urine WBC <1 Ur Squamous Epith Cells Occasional Urine Bacteria Occasional Urine Mucus Occasional Ur Culture Indicated? Not indicated Urine Opiates Screen Negative Ur Barbiturates Screen Negative Ur Phencyclidine Scrn Negative U Amphetamine/Methamph Negative U Benzodiazepines Scrn Negative U Cocaine Metab Screen Negative U Cannabinoids Screen Negative 05/30/17 05/30/17 05/30/17 11:58 11:09 11:04 WBC RBC Hgb Hct MCV MCH MCHC RDW Plt Count MPV Neut % (Auto) Lymph % (Auto) [place] % (Auto) Eos % (Auto) Baso % (Auto) Neut # (Auto) Lymph # (Auto) [place] # (Auto) Eos # (Auto) Baso # (Auto) Immature Gran % Nucleated RBC % Immature Gran # Nucleated RBCs # Immature Plt Fraction ABG pH 7.077 L* ABG pCO2 18.7 L* ABG pO2 129.0 H ABG HCO3 8.0 L ABG Total CO2 5.2 L ABG O2 Saturation 97.3 ABG Base Excess -24.0 L FiO2 Sodium 129 L Potassium 5.2 H Chloride 93 L Carbon Dioxide 12 L Anion Gap 29.2 H BUN 40 H Creatinine 1.50 H GFR Calculation 29 BUN/Creatinine Ratio 26.00 H Glucose 666 H* POC Glucose > 500 H* Hemoglobin A1c Calculated Osmolality 299.9 Lactic Acid Calcium 9.9 Phosphorus Magnesium Total Bilirubin 0.60 AST 20 ALT 35 Alkaline Phosphatase 239 H Total Protein 7.6 Albumin 4.4 Globulin 3.2 Albumin/Globulin Ratio 1.3 Lipase 466.0 H b-Hydroxybutyric mmol/L Free T4 TSH 3rd Generation Urine Color Urine Appearance Urine pH Ur Specific [place] Urine Protein Urine Glucose (UA) Urine Ketones Urine Blood Urine Nitrate Urine Bilirubin Urine Urobilinogen Urine Leukocytes Urine WBC Ur Squamous Epith Cells Urine Bacteria Urine Mucus Ur Culture Indicated? Urine Opiates Screen Ur Barbiturates Screen Ur Phencyclidine Scrn U Amphetamine/Methamph U Benzodiazepines Scrn U Cocaine Metab Screen U Cannabinoids Screen DS: Provider Date of admission: 05/30/17 12:58 Primary care physician: . 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
[2017-05-31] MEDS: PANTOPRAZOLE 40 MG VIAL IV SCH (14:01)
[2017-05-31 15:35] VITALS: BP 114/45
== END 2017-05-31 17:52 | disposition home or self-care (01) | DRG 637 ==
LOC: N.ED 10:57 → N.EDINP 12:58 → N.CC 13:55
PROVIDERS: ADMIT Internal Medicine; ATTEND Internal Medicine

== ENCOUNTER 2020-06-25 11:48 | Observation (INO) ==
[2020-06-25] MEDS ORDERED: ONDANSETRON 4 MG/2 ML VIAL IV STA (12:30)
[2020-06-25 12:36] LABS: Basophils # 0.1 10*3/uL (0.0-0.2); Basophils % 1.2 % (0.0-0.8); Eosinophils # 0.1 10*3/uL (0.0-0.87); Hematocrit 46.7 VOL% (35.7-47.0); Hemoglobin 16.4 GM/DL (12.0-16.0); Immature Granulocytes % 0.9 %; Immature Granulocytes Absolute 0.07 #; Lymphocytes # 1.7 10*3/uL (1.4-4.0); Lymphocytes % 21.9 % (21.3-54.2); Mean Corpuscular HGB Conc 35.1 GM/DL (32-36); Mean Corpuscular Volume 82.7 FL (87-102); Mean Platelet Volume 11.2 FL (9.6-12.0); Monocytes % 5.3 % (1.7-12.7); Neutrophils % 69.7 % (38.7-73.9); Platelet Count 451 T/CUMM (130-400); Red Blood Count 5.65 MC/CUMM (3.8-5.5); Red Cell Distribution Width 12.7 % (9.3-17.3); White Blood Count 7.7 T/CUMM (4-12)
[2020-06-25 12:56] LABS: Albumin 4.1 G/DL (3.4-5.0); Bilirubin,Total 0.5 MG/DL (0.2-1.0); Calcium 10.7 MG/DL (8.5-10.1); Osmolality,Calculated 277.1 MOS/KG (273-304); Total Protein 8.1 G/DL (6.4-8.3)
[2020-06-25] MEDS ORDERED: INSULIN REGULAR 100 UNIT/ML IV STA (14:24)
[2020-06-25] MEDS ORDERED: SODIUM CHLORIDE 0.9% 1,000 ML IV STA ×2 (14:26→14:52)
[2020-06-25] MEDS ORDERED: ONDANSETRON 4 MG/2 ML VIAL IV PRN (14:49)
[2020-06-25] MEDS ORDERED: DEXTROSE 50% 25 GM/50 ML VIAL IV PRN ×2 (14:49)
[2020-06-25] MEDS ORDERED: GLUCAGON 1 MG VIAL IM PRN ×2 (14:49)
[2020-06-25 15:49] LABS: Risk Ratio 4.31; Thyroid Stimulating Hormone 21.5 uIU/ml (0.358-3.74); VLDL CHOLESTEROL 54.2 MG/DL
[2020-06-25] MEDS ORDERED: INSULIN REGULAR 100 UNIT/ML SUBCUT SCH (18:00)
[2020-06-25 18:59] LABS: Calcium 8.5 MG/DL (8.5-10.1); Osmolality,Calculated 285.2 MOS/KG (273-304)
[2020-06-25] MEDS ORDERED: MIRTAZAPINE 15 MG TABLET PO SCH (21:00)
[2020-06-25] MEDS ORDERED: ATORVASTATIN 10 MG TABLET PO SCH (21:00)
[2020-06-25] MEDS ORDERED: ENOXAPARIN 30 MG/0.3 ML SYRINGE SUBCUT SCH (21:00)
[2020-06-25] MEDS: INSULIN LISPRO 100 UNIT/ML SUBCUT SCH ×2 (21:03→22:32)
[2020-06-25] MEDS: SODIUM CHLORIDE 0.9% 1,000 ML IV SCH ×2 (22:36→22:43)
[2020-06-26] MEDS: INSULIN LISPRO 100 UNIT/ML SUBCUT SCH ×4 (01:22→13:31)
[2020-06-26] MEDS ORDERED: INFLUENZA VIRUS VACCINE 0.5 ML SYRINGE IM ONE (03:04)
[2020-06-26] MEDS: SODIUM CHLORIDE 0.9% 1,000 ML IV SCH ×2 (05:36→13:31)
[2020-06-26 05:39] LABS: Basophils % 0.8 % (0.0-0.8); Eosinophils # 0.2 10*3/uL (0.0-0.87); Eosinophils % 3.4 % (0.00-10.9); Hematocrit 30.1 VOL% (35.7-47.0); Hemoglobin 10.5 GM/DL (12.0-16.0); Immature Granulocytes % 1.1 %; Immature Granulocytes Absolute 0.05 #; Lymphocytes # 1.8 10*3/uL (1.4-4.0); Lymphocytes % 38.4 % (21.3-54.2); Mean Corpuscular HGB Conc 34.9 GM/DL (32-36); Mean Corpuscular Volume 83.4 FL (87-102); Mean Platelet Volume 11.4 FL (9.6-12.0); Monocytes % 8.2 % (1.7-12.7); Neutrophils % 48.1 % (38.7-73.9); Platelet Count 246 T/CUMM (130-400); Red Blood Count 3.61 MC/CUMM (3.8-5.5); Red Cell Distribution Width 12.6 % (9.3-17.3); White Blood Count 4.7 T/CUMM (4-12)
[2020-06-26 05:55] LABS: Calcium 8.5 MG/DL (8.5-10.1); Osmolality,Calculated 291.5 MOS/KG (273-304)
[2020-06-26 08:19] VITALS: BP 95/54
[2020-06-26] MEDS ORDERED: DULoxetine 30 MG CAPSULE PO SCH (09:00)
[2020-06-26] MEDS ORDERED: lamoTRIgine 100 MG TABLET PO SCH (09:00)
[2020-06-26] MEDS ORDERED: INSULIN GLARGINE 100 UNIT/ML SUBCUT SCH (09:00)
[2020-06-26] MEDS ORDERED: LEVOTHYROXINE 125 MCG TABLET PO SCH (09:00)
[2020-06-26] MEDS ORDERED: PANTOPRAZOLE 40 MG TABLET PO SCH (09:00)
[2020-06-27] MEDS ORDERED: NON-FORMULARY MEDICATION (Alendronate [Fosamax] 70 mg Tablet) PO SCH (09:00)
== END 2020-06-26 14:17 | disposition home or self-care (01) ==
LOC: N.EDINP 11:48 → N.ED 11:48 → N.TELES 17:23
PROVIDERS: ADMIT Internal Medicine; ATTEND Internal Medicine

== ENCOUNTER 2020-11-07 00:45 | Observation (INO) ==
[2020-11-07] MEDS ORDERED: DIPH/TET/ACEL PERT BOOSTER VACCINE 0.5 ML VIAL IM ONE (01:18)
[2020-11-07] MEDS ORDERED: SODIUM CHLORIDE 0.9% 1,000 ML IV STA ×2 (01:18→03:15)
[2020-11-07] MEDS ORDERED: ONDANSETRON 4 MG/2 ML VIAL IV STA (01:18)
[2020-11-07 01:36] LABS: Basophils # 0.1 10*3/uL (0.0-0.2); Basophils % 1.2 % (0.0-0.8); Eosinophils # 0.1 10*3/uL (0.0-0.87); Eosinophils % 0.7 % (0.00-10.9); Hematocrit 42.6 VOL% (35.7-47.0); Hemoglobin 13.7 GM/DL (12.0-16.0); Immature Granulocytes % 1.3 %; Immature Granulocytes Absolute 0.09 #; Lymphocytes # 1.8 10*3/uL (1.4-4.0); Lymphocytes % 26.5 % (21.3-54.2); Mean Corpuscular HGB Conc 32.2 GM/DL (32-36); Mean Platelet Volume 11.3 FL (9.6-12.0); Monocytes % 6.4 % (1.7-12.7); Neutrophils % 63.9 % (38.7-73.9); Platelet Count 384 T/CUMM (130-400); Red Blood Count 4.84 MC/CUMM (3.8-5.5); Red Cell Distribution Width 12.6 % (9.3-17.3); White Blood Count 6.8 T/CUMM (4-12)
[2020-11-07 01:50] LABS: INR 0.9; PT Patient Result 10.2 SECS (9.8-11.9)
[2020-11-07 01:54] LABS: Alanine Aminotransferase 37 U/L (13-56); Albumin 3.6 G/DL (3.4-5.0); Alkaline Phosphatase 136 U/L (45-117); Aspartate Amino Transferase 18 U/L (0-37); Blood Urea Nitrogen 27 MG/DL (7-18); Calcium 8.9 MG/DL (8.5-10.1); Carbon Dioxide 16 MMOL/L (21-32); Estimated Glom Filtration Rate 32 ML/MIN; Glucose 323 MG/DL (74-106); Osmolality,Calculated 274.9 MOS/KG (273-304); Potassium 3.6 MMOL/L (3.5-5.1); Sodium 129 MMOL/L (136-145); Total Protein 6.8 G/DL (6.4-8.3)
[2020-11-07 02:09] LABS: Bacteria,Urine Occasional /HPF (Few); Bilirubin,Urine Negative (Negative); Blood, Urine Small mg/dL (Negative); Glucose,Urine (UA) >=500 mg/dL (Negative); Hyaline Casts,Urine 12 /LPF (0-3); Ketones,Urine 80 mg/dL (Negative); Mucus,Urine Occasional /LPF (Occasional); Nitrite,Urine Negative (Negative); Protein,Urine 30 MG/DL; RBC,Urine 12 /HPF (0-4); Squamous Epithelial Cell,Urine Occasional /HPF (0-10); Urine Appearance CLOUDY (Clear); Urine Color Yellow (Yellow); Urine Urobilinogen < 2.0 EU/DL (0.2-1.0); WBC,Urine 192 /HPF (0-6)
[2020-11-07] MEDS ORDERED: INSULIN REGULAR 100 UNIT/ML SUBCUT STA (02:19)
[2020-11-07] MEDS ORDERED: LEVOFLOXACIN INJ 750 MG in PREMIX 1 EACH IV STA (02:23)
[2020-11-07 02:32] LABS: ABG Base Excess -12.4 MMOL/L (-2.5-2.5); ABG HCO3 14.8 MMOL/L (20-26); ABG Oxygen Saturation 98.4 % (95-100); ABG PCO2 32.7 MM HG (35-48); ABG PH 7.242 (7.35-7.45); ABG TCO2 12.8 MMOL/L (23-27)
[2020-11-07] MEDS ORDERED: SODIUM BICARBONATE 50 MEQ/50 ML VIAL IV STA (03:14)
[2020-11-07 05:45] LABS: Calcium 7.4 MG/DL (8.5-10.1); Osmolality,Calculated 284.7 MOS/KG (273-304)
[2020-11-07] MEDS ORDERED: GLUCAGON 1 MG VIAL IM PRN (06:01)
[2020-11-07] MEDS ORDERED: ONDANSETRON 4 MG/2 ML VIAL IV PRN (06:01)
[2020-11-07] MEDS ORDERED: DEXTROSE 50% 25 GM/50 ML VIAL IV PRN (06:01)
[2020-11-07] MEDS ORDERED: DOCUSATE SODIUM 100 MG CAPSULE PO PRN (06:01)
[2020-11-07] MEDS ORDERED: MAGNESIUM SULF RIDER 2 GM in PREMIX 1 EACH IV PRN (06:23)
[2020-11-07] MEDS ORDERED: POTASSIUM CHLORIDE 20 MEQ TABLET PO PRN (06:23)
[2020-11-07] MEDS ORDERED: MAGNESIUM SULF RIDER 4 GM in PREMIX 1 EACH IV PRN (06:23)
[2020-11-07] MEDS: SODIUM CHLORIDE 0.9% 1,000 ML IV SCH ×2 (06:28→15:46)
[2020-11-07] MEDS ORDERED: ENOXAPARIN 40 MG/0.4 ML SYRINGE SUBCUT SCH (06:30)
[2020-11-07] MEDS: INSULIN REGULAR 100 UNIT/ML SUBCUT SCH ×4 (06:30→18:10)
[2020-11-07 08:19] LABS: Thyroid Stimulating Hormone 31.7 uIU/ml (0.358-3.74)
[2020-11-07] MEDS ORDERED: INSULIN GLARGINE 100 UNIT/ML SUBCUT SCH (10:30)
[2020-11-07 16:06] LABS: Calcium 7.7 MG/DL (8.5-10.1); Osmolality,Calculated 284.5 MOS/KG (273-304); Potassium 3.7 MMOL/L (3.5-5.1)
[2020-11-07 20:09] VITALS: BP 143/69
[2020-11-07 21:27] LABS: Calcium 7.8 MG/DL (8.5-10.1); Osmolality,Calculated 286.4 MOS/KG (273-304); Potassium 3.6 MMOL/L (3.5-5.1)
[2020-11-08] MEDS ORDERED: LEVOFLOXACIN INJ 500 MG in PREMIX 1 EACH IV SCH (02:00)
== END 2020-11-07 20:16 | disposition home or self-care (01) ==
LOC: N.ED 00:45 → N.EDINP 00:45
PROVIDERS: ADMIT Internal Medicine; ATTEND Internal Medicine

== ENCOUNTER 2021-03-05 13:31 | Inpatient (IN) ==
[2021-03-05] MEDS ORDERED: SODIUM CHLORIDE 0.9% 1,000 ML IV STA (15:25)
[2021-03-05 16:00] LABS: ABG Base Excess -29.8 MMOL/L (-2.5-2.5); ABG HCO3 5.9 MMOL/L (20-26); ABG Oxygen Saturation 98.5 % (95-100)
[2021-03-05 16:01] LABS: Basophils # 0.1 10*3/uL (0.0-0.2); Basophils % 0.9 % (0.0-0.8); Eosinophils % 0.1 % (0.00-10.9); Hematocrit 45.1 VOL% (35.7-47.0); Hemoglobin 14.5 GM/DL (12.0-16.0); Immature Granulocytes % 0.9 %; Immature Granulocytes Absolute 0.13 #; Lymphocytes # 1.6 10*3/uL (1.4-4.0); Lymphocytes % 11.6 % (21.3-54.2); Mean Corpuscular HGB Conc 32.2 GM/DL (32-36); Mean Corpuscular Volume 87.6 FL (87-102); Monocytes % 3.9 % (1.7-12.7); Neutrophils % 82.6 % (38.7-73.9); Platelet Count 418 T/CUMM (130-400); Red Blood Count 5.15 MC/CUMM (3.8-5.5); Red Cell Distribution Width 12.5 % (9.3-17.3)
[2021-03-05 16:04] LABS: ABG PH 7.006 (7.35-7.45)
[2021-03-05 16:05] LABS: ABG PCO2 9.3 MM HG (35-48); ABG TCO2 2.2 MMOL/L (23-27)
[2021-03-05] MEDS ORDERED: INSULIN REGULAR 100 UNIT/ML IV STA (16:08)
[2021-03-05 16:27] LABS: Albumin 3.9 G/DL (3.4-5.0); Bilirubin,Total 0.7 MG/DL (0.2-1.0); Osmolality,Calculated 288.8 MOS/KG (273-304); Total Protein 6.9 G/DL (6.4-8.2)
[2021-03-05 16:33] LABS: Potassium 6.1 MMOL/L (3.5-5.1)
[2021-03-05] MEDS ORDERED: ALBUTEROL 2.5 MG/3 ML NEB RESP TX PRN (16:40)
[2021-03-05] MEDS ORDERED: INSULIN REGULAR 100 UNIT/ML IV ONE (16:43)
[2021-03-05] MEDS ORDERED: MAGNESIUM SULF RIDER 4 GM/100 ML PREMIX IV PRN (16:43)
[2021-03-05] MEDS ORDERED: SODIUM PHOSPHATE IV PRN (16:43)
[2021-03-05] MEDS ORDERED: MAGNESIUM SULF RIDER 2 GM/50 ML PREMIX IV PRN (16:43)
[2021-03-05] MEDS ORDERED: SODIUM CHLORIDE 0.9% IV PRN (16:43)
[2021-03-05] MEDS ORDERED: SODIUM CHLORIDE 0.9% 1,000 ML IV ONE (16:43)
[2021-03-05] MEDS ORDERED: DEXTROSE 50% 25 GM/50 ML VIAL IV PRN ×2 (16:43)
[2021-03-05] MEDS ORDERED: SODIUM BICARB INJ 100 MEQ in STERILE WATER INJ 400 ML IV PRN (16:43)
[2021-03-05 17:00] LABS: Bacteria,Urine Occasional /HPF (Few); Bilirubin,Urine Negative (Negative); Blood, Urine Small mg/dL (Negative); Glucose,Urine (UA) >=500 mg/dL (Negative); Hyaline Casts,Urine 7 /LPF (0-3); Ketones,Urine 80 mg/dL (Negative); Mucus,Urine Occasional /LPF (Occasional); Nitrite,Urine Negative (Negative); Protein,Urine 30 MG/DL; RBC,Urine 1 /HPF (0-4); Squamous Epithelial Cell,Urine Occasional /HPF (0-10); Urine Appearance Slightly Hazy (Clear); Urine Color Yellow (Yellow); Urine Urobilinogen < 2.0 EU/DL (0.2-1.0)
[2021-03-05] MEDS ORDERED: SODIUM BICARBONATE 50 MEQ/50 ML VIAL IV ONE (17:45)
[2021-03-05] MEDS: SODIUM CHLORIDE 0.9% 1,000 ML IV SCH ×3 (17:49→19:53)
[2021-03-05 18:21] LABS: ABG Base Excess -25.5 MMOL/L (-2.5-2.5); ABG HCO3 2.8 MMOL/L (20-26); ABG Oxygen Saturation 98.1 % (95-100); ABG PO2 139.3 MM HG (80-95); ABG TCO2 3.1 MMOL/L (23-27); Allen Test Positive; Pt O2 Delivery Device Room Air
[2021-03-05 18:30] LABS: Osmolality,Calculated 294.7 MOS/KG (273-304); Potassium 4.9 MMOL/L (3.5-5.1)
[2021-03-05] MEDS: FAMOTIDINE 20 MG/2 ML VIAL IV SCH (18:59)
[2021-03-05] MEDS: INSULIN REGULAR DRIP 100 ML IV SCH (19:08)
[2021-03-05 20:33] LABS: Calcium 7.3 MG/DL (8.5-10.1); Osmolality,Calculated 298.4 MOS/KG (273-304); Potassium 3.7 MMOL/L (3.5-5.1)
[2021-03-05 20:38] LABS: ABG Base Excess -16.6 MMOL/L (-2.5-2.5); ABG HCO3 8.3 MMOL/L (20-26); ABG Oxygen Saturation 97.7 % (95-100); ABG PH 7.264 (7.35-7.45); ABG PO2 115.5 MM HG (80-95); ABG TCO2 8.9 MMOL/L (23-27)
[2021-03-05 20:40] LABS: ABG PCO2 18.8 MM HG (35-48)
[2021-03-05] MEDS ORDERED: SODIUM CHLORIDE 0.9% 1,000 ML IV SCH (22:00)
[2021-03-05 22:19] LABS: ABG Base Excess -17.3 MMOL/L (-2.5-2.5); ABG Oxygen Saturation 97.7 % (95-100); ABG PH 7.247 (7.35-7.45); ABG PO2 120.7 MM HG (80-95); ABG TCO2 8.5 MMOL/L (23-27)
[2021-03-05 22:21] LABS: ABG PCO2 18.7 MM HG (35-48)
[2021-03-06] MEDS: DEXTROSE 5% NACL 0.9% 1,000 ML IV SCH ×2 (00:25→06:58)
[2021-03-06 01:07] LABS: Calcium 6.9 MG/DL (8.5-10.1); Osmolality,Calculated 293.1 MOS/KG (273-304); Potassium 3.5 MMOL/L (3.5-5.1)
[2021-03-06] MEDS: SODIUM CHLORIDE 0.9% 1,000 ML IV SCH ×2 (01:43→09:30)
[2021-03-06 02:50] LABS: ABG Base Excess -8.9 MMOL/L (-2.5-2.5); ABG HCO3 17.3 MMOL/L (20-26); ABG PCO2 30.5 MM HG (35-48); ABG PH 7.331 (7.35-7.45); ABG TCO2 14.8 MMOL/L (23-27); Allen Test Positive; Pt O2 Delivery Device Room Air
[2021-03-06] MEDS: SODIUM CHLOR 0.45% KCL 20 MEQ 20 MEQ/1,000 ML BAG IV SCH ×2 (03:10→08:16)
[2021-03-06 03:25] LABS: Calcium 6.8 MG/DL (8.5-10.1); Osmolality,Calculated 295.1 MOS/KG (273-304); Potassium 3.2 MMOL/L (3.5-5.1)
[2021-03-06] MEDS: POTASSIUM CHLORIDE RIDER 10 MEQ/100 ML PREMIX IV PRN ×3 (04:02→06:05)
[2021-03-06] MEDS: FAMOTIDINE 20 MG/2 ML VIAL IV SCH ×2 (04:08→18:18)
[2021-03-06] MEDS: DEXT 5% NACL 0.45% KCL 20 MEQ 20 MEQ/1,000 ML BAG IV SCH ×2 (05:03→09:15)
[2021-03-06 05:05] LABS: Basophils % 0.3 % (0.0-0.8); Eosinophils % 0.1 % (0.00-10.9); Hematocrit 26.5 VOL% (35.7-47.0); Hemoglobin 9.7 GM/DL (12.0-16.0); Immature Granulocytes % 0.8 %; Immature Granulocytes Absolute 0.06 #; Lymphocytes # 0.9 10*3/uL (1.4-4.0); Lymphocytes % 12.1 % (21.3-54.2); Mean Corpuscular HGB Conc 36.6 GM/DL (32-36); Mean Corpuscular Volume 80.3 FL (87-102); Monocytes % 4.9 % (1.7-12.7); Neutrophils % 81.8 % (38.7-73.9); Platelet Count 233 T/CUMM (130-400); Red Cell Distribution Width 12.3 % (9.3-17.3); White Blood Count 7.2 T/CUMM (4-12)
[2021-03-06 05:09] LABS: ABG PCO2 10.3 MM HG (35-48)
[2021-03-06 05:34] LABS: Alanine Aminotransferase 18 U/L (13-56); Albumin 2.6 G/DL (3.4-5.0); Alkaline Phosphatase 84 U/L (45-117); Aspartate Amino Transferase 15 U/L (0-37); Bilirubin,Total < 0.39 MG/DL (0.2-1.0); Blood Urea Nitrogen 24 MG/DL (7-18); Calcium 6.9 MG/DL (8.5-10.1); Carbon Dioxide 20 MMOL/L (21-32); Estimated Glom Filtration Rate 61 ML/MIN; Glucose 164 MG/DL (74-106); Potassium 3.5 MMOL/L (3.5-5.1); Sodium 143 MMOL/L (136-145); Total Protein 4.7 G/DL (6.4-8.2)
[2021-03-06 08:38] LABS: Osmolality,Calculated 285.4 MOS/KG (273-304); Potassium 3.5 MMOL/L (3.5-5.1)
[2021-03-06] MEDS ORDERED: GLUCAGON 1 MG VIAL IM PRN (08:43)
[2021-03-06] MEDS ORDERED: POTASSIUM PHOSPHATE 30 MMOL in SODIUM CHLORIDE 0.9% 250 ML IV ONE (09:00)
[2021-03-06] MEDS: SODIUM CHLORIDE 0.45% 1,000 ML IV SCH ×3 (09:00→18:24)
[2021-03-06] MEDS: INSULIN LISPRO 100 UNIT/ML SUBCUT SCH ×4 (09:45→21:18)
[2021-03-06 13:45] LABS: Calcium 7.1 MG/DL (8.5-10.1); Osmolality,Calculated 277.7 MOS/KG (273-304); Potassium 3.9 MMOL/L (3.5-5.1)
[2021-03-06] MEDS: INSULIN REGULAR DRIP 100 ML IV SCH (17:25)
[2021-03-07] MEDS: INSULIN LISPRO 100 UNIT/ML SUBCUT SCH ×6 (01:16→20:15)
[2021-03-07] MEDS: SODIUM CHLORIDE 0.45% 1,000 ML IV SCH (04:12)
[2021-03-07] MEDS: FAMOTIDINE 20 MG/2 ML VIAL IV SCH ×2 (04:58→16:22)
[2021-03-07] MEDS: DULoxetine 30 MG CAPSULE PO SCH (10:42)
[2021-03-07] MEDS: LEVOTHYROXINE 125 MCG TABLET PO SCH (10:42)
[2021-03-07] MEDS: lamoTRIgine 100 MG TABLET PO SCH (10:42)
[2021-03-07] MEDS ORDERED: MIRTAZAPINE 15 MG TABLET PO SCH (21:00)
[2021-03-08] MEDS: INSULIN LISPRO 100 UNIT/ML SUBCUT SCH ×4 (00:43→13:02)
[2021-03-08] MEDS: FAMOTIDINE 20 MG/2 ML VIAL IV SCH (04:21)
[2021-03-08 05:55] LABS: Calcium 7.3 MG/DL (8.5-10.1); Osmolality,Calculated 286.1 MOS/KG (273-304); Potassium 3.2 MMOL/L (3.5-5.1)
[2021-03-08 06:02] LABS: Basophils % 1.3 % (0.0-0.8); Eosinophils # 0.1 10*3/uL (0.0-0.87); Eosinophils % 3.4 % (0.00-10.9); Hematocrit 28.2 VOL% (35.7-47.0); Hemoglobin 9.6 GM/DL (12.0-16.0); Immature Granulocytes % 0.4 %; Immature Granulocytes Absolute 0.01 #; Lymphocytes # 0.9 10*3/uL (1.4-4.0); Lymphocytes % 37.4 % (21.3-54.2); Mean Corpuscular Volume 84.4 FL (87-102); Mean Platelet Volume 11.4 FL (9.6-12.0); Monocytes % 7.1 % (1.7-12.7); Neutrophils % 50.4 % (38.7-73.9); Platelet Count 171 T/CUMM (130-400); Red Blood Count 3.34 MC/CUMM (3.8-5.5); Red Cell Distribution Width 13.2 % (9.3-17.3); White Blood Count 2.4 T/CUMM (4-12)
[2021-03-08 06:22] LABS: Platelet Estimate Normal
[2021-03-08 06:23] LABS: Anisocytosis 1+
[2021-03-08] MEDS ORDERED: POTASSIUM CHLORIDE 20 MEQ TABLET PO PRN (08:05)
[2021-03-08] MEDS: DULoxetine 30 MG CAPSULE PO SCH (08:46)
[2021-03-08] MEDS: lamoTRIgine 100 MG TABLET PO SCH (08:46)
[2021-03-08] MEDS: LEVOTHYROXINE 125 MCG TABLET PO SCH (08:46)
[2021-03-08] MEDS ORDERED: ASPIRIN EC 81 MG TABLET PO SCH (09:00)
[2021-03-08] MEDS ORDERED: ROSUVASTATIN 20 MG TABLET PO SCH (09:00)
[2021-03-08 12:31] VITALS: BP 107/60
[2021-03-13] MEDS ORDERED: ALENDRONATE 70 MG PO SCH (07:00)
== END 2021-03-08 13:37 | disposition home or self-care (01) | DRG 420 ==
LOC: N.ED 13:31 → SUATTDRO 16:40 → N.EDINP 16:40 → N.CC 17:31 → N.4E 03-07 21:18
PROVIDERS: ADMIT Internal Medicine; ATTEND Internal Medicine

== ENCOUNTER 2021-03-19 09:40 | Inpatient (IN) ==
[2021-03-19] MEDS ORDERED: SODIUM CHLORIDE 0.9% 1,000 ML IV STA (10:01)
[2021-03-19] MEDS ORDERED: ONDANSETRON 4 MG/2 ML VIAL IV STA (10:02)
[2021-03-19 10:21] LABS: Basophils # 0.1 10*3/uL (0.0-0.2); Basophils % 0.4 % (0.0-0.8); Eosinophils % 0.1 % (0.00-10.9); Hematocrit 35.7 VOL% (35.7-47.0); Immature Granulocytes % 2.5 %; Immature Granulocytes Absolute 0.43 #; Lymphocytes # 0.8 10*3/uL (1.4-4.0); Lymphocytes % 4.4 % (21.3-54.2); Mean Corpuscular HGB Conc 30.8 GM/DL (32-36); Mean Corpuscular Volume 91.1 FL (87-102); Mean Platelet Volume 9.1 FL (9.6-12.0); Monocytes % 5.8 % (1.7-12.7); Neutrophils % 86.8 % (38.7-73.9); Platelet Count 558 T/CUMM (130-400); Red Blood Count 3.92 MC/CUMM (3.8-5.5); Red Cell Distribution Width 13.5 % (9.3-17.3); White Blood Count 17.3 T/CUMM (4-12)
[2021-03-19 10:38] LABS: Albumin 2.6 G/DL (3.4-5.0); Bilirubin,Total 0.6 MG/DL (0.20-1.00); Calcium 9.4 MG/DL (8.5-10.1); Osmolality,Calculated 277.2 MOS/KG (273-304); Potassium 5.1 MMOL/L (3.5-5.1); Total Protein 7.3 G/DL (6.4-8.2)
[2021-03-19 10:40] LABS: Band Neutrophils 5 % (0-10); Lymphocytes 4 % (20-55); Platelet Estimate Adequate; Segmented Neutrophils 86 % (50-85); Total Cells Counted 100
[2021-03-19 10:41] LABS: Hypochromasia Slight; Microcytosis Slight
[2021-03-19 10:45] LABS: ABG Base Excess -23.2 MMOL/L (-2.5-2.5); ABG HCO3 2.2 MMOL/L (20-26); ABG Oxygen Saturation 98.7 % (95-100); ABG PO2 164.8 MM HG (80-95); ABG TCO2 2.4 MMOL/L (23-27)
[2021-03-19 10:46] LABS: ABG PCO2 5.8 MM HG (35-48); ABG PH 7.196 (7.35-7.45)
[2021-03-19] MEDS ORDERED: INSULIN REGULAR 100 UNIT/ML IV STA (10:48)
[2021-03-19 10:55] LABS: Bacteria,Urine Occasional /HPF (Few); Bilirubin,Urine Negative (Negative); Blood, Urine Moderate mg/dL (Negative); Glucose,Urine (UA) >=500 mg/dL (Negative); Ketones,Urine 80 mg/dL (Negative); Mucus,Urine Occasional /LPF (Occasional); Nitrite,Urine Negative (Negative); Protein,Urine 30 MG/DL; RBC,Urine 7 /HPF (0-4); Squamous Epithelial Cell,Urine Occasional /HPF (0-10); Urine Appearance Slightly Hazy (Clear); Urine Color Yellow (Yellow); Urine Specific Gravity 1.017 (1.001-1.035); Urine Urobilinogen < 2.0 EU/DL (0.2-1.0)
[2021-03-19] MEDS ORDERED: ONDANSETRON 4 MG/2 ML VIAL IV PRN (11:38)
[2021-03-19] MEDS ORDERED: GLUCAGON 1 MG VIAL IM PRN (11:38)
[2021-03-19] MEDS ORDERED: DEXTROSE 50% 25 GM/50 ML VIAL IV PRN (11:38)
[2021-03-19] MEDS ORDERED: ALBUTEROL 2.5 MG/3 ML NEB RESP TX PRN (11:38)
[2021-03-19] MEDS ORDERED: LACTATED RINGERS 2,000 ML IV ONE (11:43)
[2021-03-19] MEDS ORDERED: INSULIN GLARGINE 100 UNIT/ML SUBCUT STA (11:45)
[2021-03-19] MEDS ORDERED: ENOXAPARIN 30 MG/0.3 ML SYRINGE SUBCUT SCH (12:00)
[2021-03-19] MEDS ORDERED: cefTRIAXone 1,000 MG in SODIUM CHLORIDE 0.9% 100 ML IV STA (12:51)
[2021-03-19] MEDS ORDERED: LACTATED RINGERS 1,000 ML IV SCH (13:45)
[2021-03-19] MEDS ORDERED: INSULIN LISPRO 100 UNIT/ML SUBCUT SCH ×2 (14:00→16:00)
[2021-03-19] MEDS: LEVOFLOXACIN INJ 250 MG/50 ML PREMIX IV SCH (14:26)
[2021-03-19 15:05] LABS: Calcium 8.5 MG/DL (8.5-10.1); Osmolality,Calculated 283.2 MOS/KG (273-304); Potassium 4.4 MMOL/L (3.5-5.1)
[2021-03-19] MEDS: INSULIN LISPRO 100 UNIT/ML SUBCUT SCH ×2 (16:37→20:22)
[2021-03-19 19:05] LABS: Calcium 8.3 MG/DL (8.5-10.1); Osmolality,Calculated 277.1 MOS/KG (273-304); Potassium 3.8 MMOL/L (3.5-5.1)
[2021-03-19] MEDS: POTASSIUM CHLORIDE RIDER 10 MEQ/100 ML PREMIX IV SCH ×3 (20:00→22:23)
[2021-03-19] MEDS: DEXTROSE 5% LACTATED RINGERS 1,000 ML IV SCH (20:00)
[2021-03-20] MEDS: INSULIN LISPRO 100 UNIT/ML SUBCUT SCH ×7 (00:13→20:40)
[2021-03-20 03:08] LABS: Calcium 8.6 MG/DL (8.5-10.1)
[2021-03-20 03:12] LABS: Osmolality,Calculated 263.9 MOS/KG (273-304)
[2021-03-20] MEDS: DEXTROSE 5% LACTATED RINGERS 1,000 ML IV SCH ×3 (06:35→18:58)
[2021-03-20] MEDS: LEVOTHYROXINE 125 MCG TABLET PO SCH (06:36)
[2021-03-20 07:18] LABS: Calcium 8.5 MG/DL (8.5-10.1); Osmolality,Calculated 264.8 MOS/KG (273-304); Potassium 3.3 MMOL/L (3.5-5.1)
[2021-03-20] MEDS: INSULIN GLARGINE 100 UNIT/ML SUBCUT SCH (09:26)
[2021-03-20] MEDS: lamoTRIgine 100 MG TABLET PO SCH (09:27)
[2021-03-20] MEDS: ENOXAPARIN 40 MG/0.4 ML SYRINGE SUBCUT SCH (09:27)
[2021-03-20] MEDS ORDERED: POTASSIUM CHLORIDE 20 MEQ TABLET PO ONE (11:00)
[2021-03-20 13:58] LABS: Calcium 8.2 MG/DL (8.5-10.1); Osmolality,Calculated 274.2 MOS/KG (273-304); Potassium 3.4 MMOL/L (3.5-5.1)
[2021-03-20] MEDS: LEVOFLOXACIN INJ 250 MG/50 ML PREMIX IV SCH (15:28)
[2021-03-21] MEDS ORDERED: traMADol 50 MG TABLET PO PRN (01:18)
[2021-03-21] MEDS: LEVOTHYROXINE 125 MCG TABLET PO SCH (05:55)
[2021-03-21 07:10] LABS: Calcium 7.9 MG/DL (8.5-10.1); Osmolality,Calculated 274.7 MOS/KG (273-304); Potassium 3.3 MMOL/L (3.5-5.1)
[2021-03-21] MEDS: INSULIN GLARGINE 100 UNIT/ML SUBCUT SCH (08:10)
[2021-03-21] MEDS: ENOXAPARIN 40 MG/0.4 ML SYRINGE SUBCUT SCH (08:10)
[2021-03-21] MEDS: INSULIN LISPRO 100 UNIT/ML SUBCUT SCH ×4 (08:11→12:13)
[2021-03-21] MEDS: lamoTRIgine 100 MG TABLET PO SCH (08:12)
[2021-03-21] MEDS ORDERED: POTASSIUM CHLORIDE 20 MEQ TABLET PO ONE (10:13)
[2021-03-21 12:54] VITALS: BP 127/57
== END 2021-03-21 14:12 | disposition home or self-care (01) | DRG 420 ==
LOC: N.ED 09:40 → SUATTDRO 11:38 → N.EDINP 11:38 → N.ICU 13:29
PROVIDERS: ADMIT Internal Medicine; ATTEND Emergency Medicine